=== PATIENT | male | born 1950 | race Hispanic/Latino ===

== ENCOUNTER 2017-09-10 19:19 | Inpatient (IN) | payer MEDICARE ==
[~2017-09-10 19:19] MED LIST: ISOVUE-370 76%-LOCM 1 ML ONE
[2017-09-10 20:02] LABS: Hemoglobin 16.6 g/dL (14.0-18.0); Mean Corpuscular HGB CONC 34.4 g/dL (32.0-36.0); Mean Corpuscular Hemoglobin 31.2 pg (27.0-31.0); Mean Corpuscular Volume 90.6 fL (78.0-98.0); Platelet Count 302 thou/uL (130-400); RBC Distribution Width 11.5 % (11.5-14.5); Red Blood Cell (RBC) Count 5.31 mill/uL (4.70-6.10); White Blood Cell (WBC) Count 14.5 thou/uL (4.8-10.8)
[2017-09-10 20:23] LABS: ALT (SGPT) 9 U/L (8-55); AST (SGOT) 17 U/L (5-34); Alkaline Phosphatase 115 U/L (40-150); Anion Gap 15 mmol/L (10-20); BUN (Urea Nitrogen) 20 mg/dL (8.4-25.7); Band 11 % (5-11); Bilirubin, Total 2.2 mg/dL (0.2-1.2); Calc. Creatinine Clearance 0 mL/min (70-130); Calcium 8.8 mg/dL (7.8-10.44); Carbon Dioxide 21 mmol/L (23-31); Chloride 101 mmol/L (98-107); Estimated GFR-MDRD Greater than 90; Globulin 3.8 g/dL (2.4-3.5); Glucose 138 mg/dL (80-115); Lipase 27 U/L (8-78); Lymphocytes 17 % (21-51); MDiff Complete? YES; Monocytes 12 % (0-10); Neutrophil 60 % (42-75); PLT Morphology Comment Appears Adequate; Potassium 3.9 mmol/L (3.5-5.1); Protein, Total 7.8 g/dL (5.8-8.1); RBC Morphology Normal; Sodium 133 mmol/L (136-145)
--- NOTE | 2017-09-11 00:11 | CT ---
CT ABDOMEN WITH CONTRAST CT PELVIS WITH CONTRAST: DATE: 09/10/17 TIME: 11:36 p.m. HISTORY: 66-year-old male with generalized abdominal pain, diarrhea, and anorexia. Dr. Hines discussed the findings by telephone with Dr. Narayanan of the Emergency Department at 11:48 p.m . on 09/10/17. COMPARISON: None. TECHNIQUE: IV injection of iodinated contrast media: Administered. Oral contrast media: not administered. FINDINGS: At the region of the ileocecal junction, there is extensive extraluminal edema, fat stranding, and ir regularity of the sierra of the cecum, representing mural edema. The edema is such that it is difficul t to determine whether or not a 0.5 cm focus of gas is intraluminal or extraluminal. At the ileocecal junction region, there is an irregularly shaped 2 x 1.5 x 1.5 cm calcification. Just medial to that, there is a much smaller 0.8 x 0.5 x 0.5 cm calcification. To complicate matters, the sigmoid colon takes a wide, right lateral turn, and is inseparable from th is inflammatory complex, and may possibly be tethered to this inflammatory complex. It is difficult t o identify the appendix. The rest of the colon, beginning with the ascending colon, is collapsed. All of the visualized small bowel loops are dilated and fluid filled, some with air/fluid levels. There is diffuse mild increased mural enhancement of the entire colon, consistent with at least a mild colon colitis. No abdominal aortic aneurysm. Bilateral kidneys, pancreas, adrenals, liver, and spleen, are normal. There is no pericholecystic edema, and no gallbladder wall thickening. No pneumobilia. There is a cluster of tiny gallstones at the proximal body of the gallbladder near the neck. No intrahepati c biliary ductal dilation. IMPRESSION: 1. High grade bowel obstruction at the cecum and ileocecal junction, where there are severe infl ammatory changes and severe distortion the cecum, and the presence of a 2 cm calcification (with an a djacent smaller calcific fragment). A flexion point of the sigmoid colon is involved and may be tethe red to this inflammatory process. 2. Exact etiology is uncertain but possibilities include neoplastic tumor with complication of b owel perforation, severe appendicitis with a large appendicolith, and gallstone ileus (although lack of significant changes of the gallbladder and lack of pneumobilia militate against gallstone ileus). 3. Diffuse, at least mild pancolitis, which may unrelated to the above. PAWEL Doan POS: TYLOR
[2017-09-11] MEDS ORDERED: Piperacillin/Tazobactam 3.375 GM VIAL ONE ×2 (00:31→16:27)
[2017-09-11 01:39] VITALS: BMI 29.9
[2017-09-11] MEDS: Sodium Chloride 0.9% 1,000 ML IV SCH ×2 (01:50→08:05)
[2017-09-11] MEDS ORDERED: Piperacillin/Tazobactam 3.375 GM in Sodium Chloride 0.9% 100 ML IVPB SCH (06:00)
[2017-09-11 06:30] LABS: Band 9 % (5-11); Lymphocytes 13 % (21-51); MDiff Complete? YES; Mean Corpuscular HGB CONC 33.9 g/dL (32.0-36.0); Mean Corpuscular Hemoglobin 31.4 pg (27.0-31.0); Mean Corpuscular Volume 92.6 fL (78.0-98.0); Mean Platelet Volume 6.3 fL (7.4-10.4); Monocytes 16 % (0-10); Neutrophil 62 % (42-75); PLT Morphology Comment Appears Adequate; Platelet Count 245 thou/uL (130-400); RBC Distribution Width 11.6 % (11.5-14.5); Red Blood Cell (RBC) Count 4.77 mill/uL (4.70-6.10); White Blood Cell (WBC) Count 11.9 thou/uL (4.8-10.8)
[2017-09-11] MEDS ORDERED: Dextrose 5% in Water 1,000 ML IV PRN (08:57)
[2017-09-11] MEDS ORDERED: Ondansetron HCl/PF 4 MG/2 ML Vial IVP PRN ×4 (08:57→19:24)
[2017-09-11] MEDS ORDERED: Dextrose 50% Abboject 50 ML SYRINGE SLOW IVP PRN (08:57)
[2017-09-11] MEDS ORDERED: Famotidine/PF 20 mg/2ml Vial SLOW IVP SCH (09:00)
--- NOTE | 2017-09-11 10:15 | HP ---
CHIEF COMPLAINT: Abdominal pain with diarrhea and nausea. HISTORY OF PRESENT ILLNESS: The patient is a 66-year-old male. 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 He was returning from a trip and notes that he had been feeling poorly since Thursday (about 5 days). He has had diarrhea and nausea and had very minimal oral intake. He denies vomiting. He notes progressive pain in the right lower abdomen as well. He presented to the emergency room last night for evaluation where he underwent an evaluation per Dr. Narayanan. Labo ratory studies revealed leukocytosis with a white blood cell count of 14.5. Chemistry panel revealed an elevated bilirubin of 2.2, but is otherwise unremarkable. All other liver function tests were no rmal. CT scan of abdomen and pelvis revealed inflammatory changes at the ileocecal junction with a dilated distal small bowel (nondilated proximal small bowel) and a 2 cm calcified mass at the right lower harvey drant as well. It appears that is a calcification that is obstructing the ileocecal valve leading to the small-bowel obstruction. This raised the question of possible gallstone ileus; however, he spec ifically does not have evidence of change at the gallbladder or duodenum that would suggest that this may have occurred previously. It is not obvious what this mass is or why it is present. A CEA leve l is normal at 1.7. The patient notes that he has never had a colonoscopy. PAST MEDICAL HISTORY: Negative. He does not have a primary care physician. PAST SURGICAL HISTORY: None. CURRENT MEDICATIONS: None. ALLERGIES: No known drug allergies. SOCIAL HISTORY: He is and his is present at bedside. He has 1 daughter who is also pre sent. He does not smoke nor does he drink alcohol. REVIEW OF SYSTEMS: Otherwise unremarkable. He notes that he was admitted to the hospital in [facility] for what he feels was a similar episode a couple of years ago, but that was felt to be an episode of constipation. ASSESSMENT: This patient has inflammatory change of the right lower quadrant and significant tendern ess at this location as well as evidence of a small-bowel obstruction. Nasogastric tube was not plac ed and he has had no vomiting. Unfortunately, he is going to require surgery for evaluation and joselito tment of this, but I will not be able to give him a bowel prep because of his obstruction. For the s catina reason, I will not be able to obtain a colonoscopy beforehand. I am concerned that he could have some erosion or early perforation related to this mechanical intraluminal obstruction. I would andree mmend an ileocecectomy or a right hemicolectomy. The operation performed will depend upon intraopera tive findings. Although I would like to perform this laparoscopically, his bowel dilatation may make this impossible. The patient understands this may require an open right hemicolectomy. I discussed this in detail with the patient and his . They understand and agree to proceed with surgery.
[2017-09-11] MEDS ORDERED: Lidocaine 1% PF 5 ML VIAL ONE (10:23)
[2017-09-11] MEDS ORDERED: PROPOFOL 200 MG/20 ML VIAL ONE (10:23)
[2017-09-11] MEDS ORDERED: PHENYLEPHRINE-NS 100 MCG/ML 10 ML SYRINGE ONE (10:23)
[2017-09-11] MEDS ORDERED: Succinylcholine Chloride 20 MG/ML 10 ml SYRINGE FS ONE (10:23)
[2017-09-11] MEDS: D5 1/2 NS w/20 mEq KCL 1,000 ML IV SCH ×3 (12:12→21:59)
[2017-09-11] MEDS ORDERED: Bupivacaine/Epinephrine 0.25% 30 ML VIAL ONE (13:06)
[2017-09-11] MEDS ORDERED: Lidocaine 2% 10 ML INJ ONE (13:06)
[2017-09-11] MEDS ORDERED: Ropivacaine 0.5% HCl/PF (150 MG/30 ML VIAL) ONE (13:15)
[2017-09-11] MEDS ORDERED: Fentanyl 250 MCG/5 ML VIAL ONE (13:43)
[2017-09-11] MEDS ORDERED: Lidocaine 1% w/Epinephrine 1:100K 30 ML VIAL ONE (13:55)
[2017-09-11] MEDS ORDERED: Lidocaine 2% w/Epinephrine 1:200K 20 ML VIAL ONE (14:01)
[2017-09-11] MEDS: Piperacillin/Tazobactam 3.375 GM in Sodium Chloride 0.9% 100 ML IVPB SCH ×3 (14:51→22:01)
[2017-09-11] MEDS ORDERED: HYDROmorphone 0.5 MG/0.5 ML SYRINGE ONE (17:30)
[2017-09-11] MEDS ORDERED: Ketorolac Tromethamine 30 MG/ML VIAL IVP PRN (17:52)
[2017-09-11] MEDS ORDERED: HYDROmorphone 2 MG/ML VIAL SLOW IVP PRN (17:52)
[2017-09-11] MEDS ORDERED: Promethazine HCl 25 MG/ML VIAL SLOW IVP PRN (17:52)
[2017-09-11] MEDS ORDERED: Promethazine HCl 25 MG/ML VIAL IM PRN ×3 (17:52→19:24)
[2017-09-11] MEDS ORDERED: Fentanyl 100 MCG/2 ML VIAL ONE ×2 (17:56→18:27)
[2017-09-11] MEDS ORDERED: Naloxone HCl 0.4 mg/ml Vial IV PRN (18:33)
[2017-09-11] MEDS ORDERED: diphenhydrAMINE 50 MG/ML VIAL IVP PRN (18:33)
[2017-09-11] MEDS ORDERED: fentaNYL Citrate/PF 2,000 MCG in Sodium Chloride 0.9% 60 ML IV PRN (18:33)
[2017-09-11] MEDS ORDERED: diphenhydrAMINE 50 MG/ML VIAL IM PRN (18:33)
[2017-09-11] MEDS ORDERED: Zolpidem Tartrate 5 MG TAB PO PRN (18:33)
[2017-09-11] MEDS ORDERED: diphenhydrAMINE 25 MG CAP PO PRN (18:33)
[2017-09-11] MEDS ORDERED: Communication Order-Pharmacy FS SCH (18:45)
[2017-09-11] MEDS ORDERED: hydrALAZINE 20 MG/ML VIAL SLOW IVP PRN (19:24)
[2017-09-11] MEDS: Famotidine/PF 20 mg/2ml Vial SLOW IVP SCH (21:59)
[2017-09-11] MEDS: Famotidine 20 MG TAB PO SCH (22:00)
[2017-09-12] MEDS: Acetaminophen 1,000 MG in Premix Bag 1 BAG IVPB SCH ×2 (00:08→06:26)
[2017-09-12] MEDS: Ketorolac Tromethamine 30 MG/ML VIAL IVP SCH ×4 (00:10→17:09)
[2017-09-12] MEDS: Piperacillin/Tazobactam 3.375 GM in Sodium Chloride 0.9% 100 ML IVPB SCH ×4 (04:47→21:03)
[2017-09-12 05:41] LABS: Anion Gap 10 mmol/L (10-20); BUN (Urea Nitrogen) 13 mg/dL (8.4-25.7); Calc. Creatinine Clearance 115 mL/min (70-130); Calcium 7.6 mg/dL (7.8-10.44); Carbon Dioxide 24 mmol/L (23-31); Chloride 108 mmol/L (98-107); Estimated GFR-MDRD Greater than 90; Glucose 173 mg/dL (80-115); Sodium 138 mmol/L (136-145)
[2017-09-12 05:57] LABS: Band 39 % (5-11); Hemoglobin 13.9 g/dL (14.0-18.0); Lymphocytes 13 % (21-51); MDiff Complete? YES; Mean Corpuscular HGB CONC 33.1 g/dL (32.0-36.0); Mean Corpuscular Hemoglobin 30.6 pg (27.0-31.0); Mean Corpuscular Volume 92.3 fL (78.0-98.0); Metamyelocyte 1 % (0-0); Monocytes 5 % (0-10); Neutrophil 42 % (42-75); PLT Morphology Comment Appears Adequate; Platelet Count 265 thou/uL (130-400); RBC Distribution Width 11.6 % (11.5-14.5); Red Blood Cell (RBC) Count 4.54 mill/uL (4.70-6.10); White Blood Cell (WBC) Count 15.9 thou/uL (4.8-10.8)
[2017-09-12] MEDS: D5 1/2 NS w/20 mEq KCL 1,000 ML IV SCH ×3 (06:27→21:05)
[2017-09-12] MEDS: Enoxaparin Sodium 40 MG/0.4 ML SYRINGE SC SCH (08:34)
[2017-09-12] MEDS: Famotidine/PF 20 mg/2ml Vial SLOW IVP SCH ×2 (08:35→21:03)
[2017-09-12] MEDS: Famotidine 20 MG TAB PO SCH ×2 (11:31→21:04)
--- NOTE | 2017-09-12 12:20 | PRG ---
DATE OF SERVICE: 09/12/2017 SUBJECTIVE: Mr. Vela is postop day #1 sigmoid and cecectomy by Dr. Kelly. Pain is controlled. No significant nausea. He is ambulatory this morning and hemodynamically stable overnight. PHYSICAL EXAMINATION: VITAL SIGNS: He is afebrile and his vital signs are stable. GENITOURINARY: NG tube output is only 150 overnight, Zamorano 440. ABDOMEN: Soft, minimally distended. His wounds are dressed. LABORATORY DATA: White blood cell count is 15, hemoglobin 13, platelet count is 265. He has 39 band s. Creatinine 0.75. ASSESSMENT: Postop sigmoid colectomy segmental with ileocecectomy with two anastomoses. PLAN: NG tube today. We will make sure he is ambulatory. Hopefully, by tomorrow, can take the NG t ube out, maybe start at least sips of clears.
[2017-09-12] MEDS: Acetaminophen 650 MG Suppository PR SCH ×2 (12:29→19:10)
--- NOTE | 2017-09-12 17:44 | OP ---
DATE OF PROCEDURE: 09/11/2017 PREOPERATIVE DIAGNOSES: Inflammation and pain in the right lower quadrant at the level of the cecum, small-bowel obstruction apparently related to a large calcified mass within the lumen of the distal small bowel. POSTOPERATIVE DIAGNOSES: Inflammatory indurated mass of the cecum involving the distal small bowel a nd segment of sigmoid colon. Erosion of calcified mass through the lateral wall of the cecum. OPERATION PERFORMED: Diagnostic laparoscopy with conversion to a laparotomy. A small bowel decompre ssion, open right hemicolectomy with primary stapled anastomosis, segmental sigmoid colectomy, also w ith primary stapled anastomosis (this was a difficult unconventional operation that took several hour s to complete). SURGEON: Chepe Kelly M.D. ANESTHESIA: General endotracheal. INDICATIONS: The patient is a 66-year-old male. He had presented to the emergency room wit h complaint of diarrhea, not feeling well, right lower quadrant abdominal pain. CT scan within the e mergency room revealed marked inflammation at the level of the cecum and the ileocecal valve. There was a large calcified mass, typical of a calcified gallstone at the level of the ileocecal valve. Th ere appeared to be a sigmoid colon involvement within the lesion as well. He had small-bowel obstruc tion certainly related inflammation and would be a calcified mass and it was not felt that he was a c andidate for a bowel prep. He was taken to the operating room at this time for attempted laparoscopy , but felt it would probably require an open surgery. OPERATIVE PROCEDURE IN DETAIL: Informed consent was obtained. The patient was taken to the operatin g room where general endotracheal anesthesia was obtained with the patient in supine position. Abdom en was prepped with ChloraPrep and draped in the usual sterile fashion. I initially attempted laparo scopy by placing two 5 mm ports, one in the left upper abdomen, one in the left lower abdomen. The p atient did have incarcerated omentum within his umbilical hernia and this could not be reduced with p ressure from inside as well as external pressure. The extent of bowel dilatation made it impossible to reasonably see any portion of the right colon. I therefore decided to convert to an open surgery after attempting laparoscopy. Laparoscopic ports were removed and midline laparotomy incision was created. Dissection was carried through skin and subcutaneous tissue. The hernia contents were easily reduced. I examined the entire contents of the abdomen. As suspected, the sigmoid colon was densely adherent to the area of the right lower quadrant involving the cecum and distal small bowel. I could not gene rate a plane between the structures in order to facilitate mobilization of the sigmoid colon. I evelyne sanchez decided that the sigmoid colon would have to be removed in continuity with the cecum. I alva bruno could not mobilize the cecum at all. I performed a blunt dissection of the lateral cecum and the surrounding retroperitoneum was densely indurated. As I later examined the cecum time, I realized t hat I had dissected through an opening where a perforation of the cecum associated with this calcifie d mass. The distal small bowel was inflamed and had densely adherent to the cecum about 10 cm proximal to the ileocecal valve. I could not discern whether this was inflammatory/infectious or neoplastic. I decided to resect this entire area in continuity. I first decompressed the small bowel in order to gain an area to work within the abdomen. In the dis bossman small bowel, I created an enterotomy and using the poor suction device, I decompressed the entire small bowel removing a little over a liter of bowel contents. The enterotomy was then closed with 0 silk sutures. The small bowel was then divided proximal to the enterotomy with a single fire of the [place] stapler using a blue load. The mesentery was dissected over towards the cecum and right col on. I then turned my attention to the sigmoid colon. I divided the sigmoid colon with fires of the [place] stapler proximal and distal to the area of the adhesion. The mesentery between these areas w as divided using the handheld LigaSure device. I then reflected the sigmoid colon down to the pelvis to be addressed later. Finally, I dissected and divided the proximal transverse colon again using the CATRACHO stapler. The hepatic flexure was mobilized. The mesentery of the proximal transverse and ascending colon was taken down using the LigaSure device. I continued to mobilize the cecum and right colon. There was dense induration and inflammation in the area of the white line of Toldt and this dissection was diff icult. Eventually, I was able to mobilize and divide the mesentery of the right colon as well as the distal small bowel. The specimen was lifted up and passed off as a single specimen. I tagged with sutures the ends of the sigmoid colon, transverse colon and small bowel. It was at this point that I saw the opening into the cecum with the palpable calcified lesion underneath this opening. It appea rs as though perhaps the perforation had occurred and walled off against the lateral retroperitoneum. The abdomen was then irrigated with a couple of liters of warm saline and all irrigant was aspirated. I first created a stapled anastomosis between the small bowel and the proximal transverse colon usi ng a single fire of the 75 mm CATRACHO stapler. The enterotomy was closed with another fire of the staple r. The anastomosis was buttressed with several interrupted sutures of 3-0 silk. Attention was then turned to the sigmoid colon. The two divided areas of the sigmoid colon were anas tomosed in a [id number] fashion. I did mobilize the peritoneum of the distal sigmoid colon, rectum to allow better mobilization and I took down adhesions of the sigmoid colon to the left lateral abdo andi wall. The two segments were anastomosed with a single fire of the CATRACHO stapler and again, the o pening was closed with another fire of the CATRACHO stapler. The anastomosis was buttressed with 3-0 silk suture. The abdominal cavity was again irrigated. A #19 round fluted drain was brought out in the right uppe r quadrant and passed down through the area of the prior infection in the right lower quadrant extend ing down to the pelvis. The drain was secured externally with 3-0 nylon suture. I also excised the segment of the right retroperitoneum that was inflamed and indurated to ensure that this was inflamma tory response rather than neoplastic tissue. Two sheets of Seprafilm were placed within the abdominal cavity. The closing set was then used. Gowns and gloves were changed and the area was cleansed with saline-m oistened gauze. There in a sterile fashion. The fascia was closed with a running suture of lo op #1 PDS. The subcutaneous tissue was extensively irrigated using about 2 liters of saline and all irrigant was aspirated. The skin edges were approximated with skin mic and Telfa gauze elio wer e placed between these loosely placed mic. Dry gauze dressing was placed externally. There were no complications. The elio were placed because the bowel had not been prepped with eithe r mechanical and/or antibiotic prep. There was no leakage of stool at any time during the operation, but there is still certainly the risk of wound infection especially given the perforation of the cec um. The patient tolerated the procedure well and was taken to recovery room in stable condition.
[2017-09-12] MEDS ORDERED: HYDROcodone/Acetaminophen 7.5/325 mg Tablet PO PRN ×2 (18:35)
[2017-09-13] MEDS: Ketorolac Tromethamine 30 MG/ML VIAL IVP SCH ×4 (00:02→18:10)
[2017-09-13 04:19] LABS: #Monocytes 1.2 thou/uL (0.11-0.59); #Neutrophils 10.5 thou/uL (1.40-6.50); %Basophils 0.1 % (0.0-1.0); %Eosinophils 0.3 % (0.0-10.0); %Lymphocytes 14.2 % (21.0-51.0); %Neutrophils 76.3 % (42.0-75.0); Hemoglobin 11.6 g/dL (14.0-18.0); Mean Corpuscular HGB CONC 33.7 g/dL (32.0-36.0); Mean Corpuscular Hemoglobin 31.3 pg (27.0-31.0); Mean Corpuscular Volume 92.9 fL (78.0-98.0); Mean Platelet Volume 6.1 fL (7.4-10.4); Platelet Count 213 thou/uL (130-400); RBC Distribution Width 11.3 % (11.5-14.5); Red Blood Cell (RBC) Count 3.71 mill/uL (4.70-6.10); White Blood Cell (WBC) Count 13.7 thou/uL (4.8-10.8)
[2017-09-13 04:40] LABS: Anion Gap 9 mmol/L (10-20); BUN (Urea Nitrogen) 12 mg/dL (8.4-25.7); Calc. Creatinine Clearance 121 mL/min (70-130); Calcium 7.7 mg/dL (7.8-10.44); Carbon Dioxide 27 mmol/L (23-31); Chloride 106 mmol/L (98-107); Estimated GFR-MDRD Greater than 90; Glucose 135 mg/dL (80-115); Potassium 3.2 mmol/L (3.5-5.1); Sodium 139 mmol/L (136-145)
[2017-09-13] MEDS: Piperacillin/Tazobactam 3.375 GM in Sodium Chloride 0.9% 100 ML IVPB SCH ×4 (05:28→21:15)
--- NOTE | 2017-09-13 09:36 | PDOC.GSPN ---
Surgery Progress Note: Subj - Subjective Patient reports: no new complaints Surgery Progress Note: Obj - Vital signs Vital signs: Vital Signs - Most Recent Temp Pulse Resp BP Pulse Ox 98.3 F 80 16 118/71 91 L 09/13/17 08:13 09/13/17 08:13 09/13/17 08:13 09/13/17 08:13 09/13/17 08:13 - Physical Exam General: no distress Cardiovascular: regular rate and rhythm Respiratory: clear to auscultation Abdomen: soft, nondistended, appropriately tender Wound: dressing clean,dry,intact Surgery Progress Note: Results - Labs Result Diagrams: 09/13/17 03:38 09/13/17 03:38 Lab results: Laboratory Results - last 24 hr 09/13/17 09/13/17 03:38 03:38 WBC 13.7 H RBC 3.71 L Hgb 11.6 L Hct 34.5 L MCV 92.9 MCH 31.3 H MCHC 33.7 RDW 11.3 L Plt Count 213 MPV 6.1 L Neutrophils % 76.3 H Lymphocytes % 14.2 L Monocytes % 9.0 Eosinophils % 0.3 Basophils % 0.1 Neutrophils # 10.5 H Lymphocytes # 2.0 Monocytes # 1.2 H Eosinophils # 0.0 Basophils # 0.0 Sodium 139 Potassium 3.2 L Chloride 106 Carbon Dioxide 27 Anion Gap 9 L BUN 12 Creatinine 0.71 Estimated GFR (MDRD) Greater than 90 Glucose 135 H Calcium 7.7 L Surgery Progress Note: A/P - Problem (1) Colitis Current Visit: Yes Code(s): K52.9 - NONINFECTIVE GASTROENTERITIS AND COLITIS, UNSPECIFIED Status: Acute - Plan Plan: POD 2 -DC NG -DC lucia -try clears. 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
[2017-09-13] MEDS: Famotidine/PF 20 mg/2ml Vial SLOW IVP SCH ×2 (10:36→21:13)
[2017-09-13] MEDS: Enoxaparin Sodium 40 MG/0.4 ML SYRINGE SC SCH (10:46)
[2017-09-13] MEDS: Famotidine 20 MG TAB PO SCH ×2 (12:57→21:52)
[2017-09-13] MEDS: D5 1/2 NS w/20 mEq KCL 1,000 ML IV SCH ×3 (13:44→15:16)
[2017-09-13] MEDS: Fentanyl 100 MCG/2 ML VIAL SLOW IVP PRN ×2 (15:24→21:30)
[2017-09-14] MEDS: Ketorolac Tromethamine 30 MG/ML VIAL IVP SCH ×5 (00:21→23:55)
[2017-09-14] MEDS: Fentanyl 100 MCG/2 ML VIAL SLOW IVP PRN ×2 (05:16→08:41)
[2017-09-14] MEDS: Piperacillin/Tazobactam 3.375 GM in Sodium Chloride 0.9% 100 ML IVPB SCH ×4 (05:17→21:49)
[2017-09-14] MEDS: Famotidine 20 MG TAB PO SCH ×2 (08:41→21:48)
[2017-09-14] MEDS: D5 1/2 NS w/20 mEq KCL 1,000 ML IV SCH ×2 (08:47→18:24)
[2017-09-14] MEDS: Famotidine/PF 20 mg/2ml Vial SLOW IVP SCH (08:47)
--- NOTE | 2017-09-14 09:18 | PRG ---
DATE OF SERVICE: 09/14/2017 SUBJECTIVE: Mr. Vela is postoperative day #3 from an open right hemicolectomy and segmental sigmo id colectomy for an obstructing cecal mass/inflammatory process. Pathology is still pending. The veronica goddard's nasogastric tube has been removed and he is on clear liquids. He tells me he is not belching much and has not vomited. He has had no flatus. He is urinating and voiding. PHYSICAL EXAMINATION: VITAL SIGNS: On examination today, he is afebrile, pulse 73, blood pressure 137/83. LUNGS: Clear to auscultation. ABDOMEN: Diffusely tender. Dressing is intact over his midline incision. His bowel sounds are norm al to hyperactive. LABORATORY STUDIES: There were no labs obtained today. His basic metabolic panel revealed mild hypo kalemia with a potassium of 3.2. He is receiving potassium in his IV fluids. His hemoglobin is rela tively stable at 11.6 with a white blood cell count that is decreasing at 13.7. Again, these labs we re from yesterday. In summary, he appears to be progressing appropriately. His ileus is resolving. For now, I would co ntinue clear liquids and ambulation. If he develops flatus or bowel movements, then I would advance him to a full liquid diet. We will await pathology to see if this was an inflammatory or neoplastic process.
[2017-09-14] MEDS: Enoxaparin Sodium 40 MG/0.4 ML SYRINGE SC SCH (09:56)
[2017-09-15] MEDS: Piperacillin/Tazobactam 3.375 GM in Sodium Chloride 0.9% 100 ML IVPB SCH ×4 (04:58→20:54)
[2017-09-15 06:10] LABS: Anion Gap 11 mmol/L (10-20); BUN (Urea Nitrogen) 10 mg/dL (8.4-25.7); Calc. Creatinine Clearance 125 mL/min (70-130); Calcium 8.4 mg/dL (7.8-10.44); Carbon Dioxide 26 mmol/L (23-31); Chloride 104 mmol/L (98-107); Estimated GFR-MDRD Greater than 90; Glucose 119 mg/dL (80-115); Potassium 3.5 mmol/L (3.5-5.1); Sodium 137 mmol/L (136-145)
[2017-09-15 06:13] LABS: #Basophils 0.1 thou/uL (0.0-0.2); #Eosinphils 0.4 thou/uL (0.0-0.7); #Lymphocytes 2.3 thou/uL (1.20-3.40); #Monocytes 1.9 thou/uL (0.11-0.59); #Neutrophils 9.5 thou/uL (1.40-6.50); %Basophils 0.4 % (0.0-1.0); %Eosinophils 2.7 % (0.0-10.0); %Lymphocytes 16.3 % (21.0-51.0); %Monocytes 13.2 % (0.0-10.0); %Neutrophils 67.4 % (42.0-75.0); Hemoglobin 11.9 g/dL (14.0-18.0); Mean Corpuscular HGB CONC 32.6 g/dL (32.0-36.0); Mean Corpuscular Hemoglobin 30.1 pg (27.0-31.0); Mean Corpuscular Volume 92.4 fL (78.0-98.0); Mean Platelet Volume 6.4 fL (7.4-10.4); Platelet Count 264 thou/uL (130-400); RBC Distribution Width 11.3 % (11.5-14.5); Red Blood Cell (RBC) Count 3.96 mill/uL (4.70-6.10); White Blood Cell (WBC) Count 14.1 thou/uL (4.8-10.8)
[2017-09-15] MEDS: Famotidine 20 MG TAB PO SCH ×2 (09:22→20:54)
[2017-09-15] MEDS: Enoxaparin Sodium 40 MG/0.4 ML SYRINGE SC SCH (09:23)
[2017-09-15] MEDS: D5 1/2 NS w/20 mEq KCL 1,000 ML IV SCH (10:17)
[2017-09-15] MEDS: Fentanyl 100 MCG/2 ML VIAL SLOW IVP PRN (16:06)
--- NOTE | 2017-09-15 18:51 | PDOC.GSPN ---
Surgery Progress Note: Obj - Vital signs Vital signs: Vital Signs - Most Recent Temp Pulse Resp BP Pulse Ox 98.9 F 71 16 136/81 95 09/15/17 16:10 09/15/17 16:10 09/15/17 16:10 09/15/17 16:10 09/15/17 16:10 Surgery Progress Note: Results - Labs Result Diagrams: 09/15/17 04:44 09/15/17 04:44 Lab results: Laboratory Results - last 24 hr 09/15/17 09/15/17 04:44 04:44 WBC 14.1 H RBC 3.96 L Hgb 11.9 L Hct 36.5 L MCV 92.4 MCH 30.1 MCHC 32.6 RDW 11.3 L Plt Count 264 MPV 6.4 L Neutrophils % 67.4 Lymphocytes % 16.3 L Monocytes % 13.2 H Eosinophils % 2.7 Basophils % 0.4 Neutrophils # 9.5 H Lymphocytes # 2.3 Monocytes # 1.9 H Eosinophils # 0.4 Basophils # 0.1 Sodium 137 Potassium 3.5 Chloride 104 Carbon Dioxide 26 Anion Gap 11 BUN 10 Creatinine 0.69 Estimated GFR (MDRD) Greater than 90 Glucose 119 H Calcium 8.4
[2017-09-16] MEDS: Fentanyl 100 MCG/2 ML VIAL SLOW IVP PRN (00:58)
[2017-09-16] MEDS: D5 1/2 NS w/20 mEq KCL 1,000 ML IV SCH ×2 (01:02→11:22)
[2017-09-16] MEDS: Piperacillin/Tazobactam 3.375 GM in Sodium Chloride 0.9% 100 ML IVPB SCH ×2 (03:59→10:02)
[2017-09-16] MEDS: Famotidine 20 MG TAB PO SCH ×2 (08:55→22:28)
[2017-09-16] MEDS: Enoxaparin Sodium 40 MG/0.4 ML SYRINGE SC SCH (08:55)
[2017-09-16] MEDS ORDERED: traMADol HCl 50 MG TAB PO PRN (11:05)
[2017-09-16] MEDS: traMADol HCl 50 MG TAB PO PRN ×2 (11:22→22:34)
[2017-09-16] MEDS ORDERED: Ibuprofen 600 MG TAB PO PRN (14:50)
[2017-09-16] MEDS: Vancomycin HCl 25 MG/ML Oral PO SCH ×2 (17:22→22:28)
--- NOTE | 2017-09-16 23:07 | HP ---
HISTORY OF PRESENT ILLNESS: Mr. Vela is doing well today. His Clostridium difficile stools were positive for antigen and antibody. He is still on p.o. His Zosyn was discontinued. He is nisreen erating his diet, although does not have much appetite. His stools are less by 2:00 today, he has only had 2-3 loose stools. PHYSICAL EXAMINATION: LUNGS: Clear to auscultation. CARDIAC: Regular rate and rhythm without murmur or gallop. ABDOMEN: Soft, nontender. EXTREMITIES: Unremarkable. LABORATORY DATA: White count 14.1, hemoglobin 11.9 yesterday. Basic metabolic profile normal yester day, no labs today. ASSESSMENT AND PLAN: 1. Clostridium difficile colitis, start Vancocin p.o., discontinue Zosyn. 2. GI function is resuming. Discontinue IV fluids as his diarrhea seems to have decreased. Increas e his diet as tolerated oral analgesics. Discontinue narcotic, analgesics. A LUBA ballard for n ow. Anticipate removal tomorrow, possibly prior to discharge tomorrow or the next day pending his C. diff status.
[2017-09-17 08:27] LABS: #Basophils 0.1 thou/uL (0.0-0.2); #Eosinphils 0.5 thou/uL (0.0-0.7); #Lymphocytes 2.6 thou/uL (1.20-3.40); #Monocytes 1.9 thou/uL (0.11-0.59); #Neutrophils 8.5 thou/uL (1.40-6.50); %Basophils 0.6 % (0.0-1.0); %Eosinophils 3.7 % (0.0-10.0); %Monocytes 14.2 % (0.0-10.0); %Neutrophils 62.5 % (42.0-75.0); Hemoglobin 12.8 g/dL (14.0-18.0); Mean Corpuscular HGB CONC 33.5 g/dL (32.0-36.0); Mean Corpuscular Hemoglobin 30.6 pg (27.0-31.0); Mean Corpuscular Volume 91.5 fL (78.0-98.0); Mean Platelet Volume 5.8 fL (7.4-10.4); Platelet Count 311 thou/uL (130-400); RBC Distribution Width 11.5 % (11.5-14.5); Red Blood Cell (RBC) Count 4.19 mill/uL (4.70-6.10); White Blood Cell (WBC) Count 13.6 thou/uL (4.8-10.8)
[2017-09-17 08:44] LABS: Anion Gap 12 mmol/L (10-20); BUN (Urea Nitrogen) 8 mg/dL (8.4-25.7); Calc. Creatinine Clearance 135 mL/min (70-130); Calcium 8.4 mg/dL (7.8-10.44); Carbon Dioxide 25 mmol/L (23-31); Chloride 102 mmol/L (98-107); Estimated GFR-MDRD Greater than 90; Glucose 96 mg/dL (80-115); Potassium 3.7 mmol/L (3.5-5.1); Sodium 135 mmol/L (136-145)
[2017-09-17] MEDS: Vancomycin HCl 25 MG/ML Oral PO SCH ×4 (09:26→20:50)
[2017-09-17] MEDS: Famotidine 20 MG TAB PO SCH ×2 (09:27→20:48)
[2017-09-17] MEDS: Enoxaparin Sodium 40 MG/0.4 ML SYRINGE SC SCH (11:21)
[2017-09-17] MEDS: traMADol HCl 50 MG TAB PO PRN (14:37)
--- NOTE | 2017-09-17 17:48 | PDOC.GSPN ---
Surgery Progress Note: Subj - Subjective Narrative: Feels better. Abdominal pain is less and diarrhea is decreasing in quantity although still watery. Afebrile. JANINA drainage is serous. Lj were removed. There is some erythema superior to the umbilicus and the drainage from that area is somewhat murky and malodorous. The wound was irrigated and packed. Assessment/plan: Doing well from colon resection. C. difficile colitis responding to oral vancomycin. Possible wound infection; the fascia is intact by probing. For wound care training and observation since [place] I'm hesitant to start antibiotics due to his C. difficile colitis so we will try to manage this with irrigation and packing. The family's being instructed in wound care. I have elected to keep him here for another day Surgery Progress Note: Obj - Vital signs Vital signs: Vital Signs - Most Recent Temp Pulse Resp BP Pulse Ox 98.2 F 84 18 147/83 H 94 L 09/17/17 15:49 09/17/17 15:49 09/17/17 15:49 09/17/17 15:49 09/17/17 15:49 Surgery Progress Note: Results - Labs Result Diagrams: 09/17/17 08:19 09/17/17 08:19 Lab results: Laboratory Results - last 24 hr 09/17/17 09/17/17 08:19 08:19 WBC 13.6 H RBC 4.19 L Hgb 12.8 L Hct 38.3 L MCV 91.5 MCH 30.6 MCHC 33.5 RDW 11.5 Plt Count 311 MPV 5.8 L Neutrophils % 62.5 Lymphocytes % 19.0 L Monocytes % 14.2 H Eosinophils % 3.7 Basophils % 0.6 Neutrophils # 8.5 H Lymphocytes # 2.6 Monocytes # 1.9 H Eosinophils # 0.5 Basophils # 0.1 Sodium 135 L Potassium 3.7 Chloride 102 Carbon Dioxide 25 Anion Gap 12 BUN 8 L Creatinine 0.64 Estimated GFR (MDRD) Greater than 90 Glucose 96 Calcium 8.4
[2017-09-18] MEDS: traMADol HCl 50 MG TAB PO PRN ×2 (00:52→09:24)
[2017-09-18] MEDS: Famotidine 20 MG TAB PO SCH ×2 (09:22→21:03)
[2017-09-18] MEDS: Enoxaparin Sodium 40 MG/0.4 ML SYRINGE SC SCH (09:22)
[2017-09-18] MEDS: Vancomycin HCl 25 MG/ML Oral PO SCH ×4 (09:26→21:04)
[2017-09-18] MEDS: metroNIDAZOLE 500 MG in Premix Bag 1 BAG IVPB SCH (16:35)
[2017-09-19] MEDS: metroNIDAZOLE 500 MG in Premix Bag 1 BAG IVPB SCH ×4 (00:22→23:21)
[2017-09-19 05:38] LABS: #Basophils 0.1 thou/uL (0.0-0.2); #Eosinphils 0.6 thou/uL (0.0-0.7); #Lymphocytes 2.6 thou/uL (1.20-3.40); #Monocytes 1.7 thou/uL (0.11-0.59); %Basophils 0.4 % (0.0-1.0); %Eosinophils 4.2 % (0.0-10.0); %Lymphocytes 17.4 % (21.0-51.0); %Monocytes 11.5 % (0.0-10.0); %Neutrophils 66.5 % (42.0-75.0); Hemoglobin 12.8 g/dL (14.0-18.0); Mean Corpuscular HGB CONC 33.3 g/dL (32.0-36.0); Mean Corpuscular Hemoglobin 30.2 pg (27.0-31.0); Mean Corpuscular Volume 90.6 fL (78.0-98.0); Mean Platelet Volume 5.6 fL (7.4-10.4); Platelet Count 385 thou/uL (130-400); RBC Distribution Width 11.4 % (11.5-14.5); Red Blood Cell (RBC) Count 4.24 mill/uL (4.70-6.10)
[2017-09-19 06:03] LABS: Anion Gap 12 mmol/L (10-20); BUN (Urea Nitrogen) 9 mg/dL (8.4-25.7); Calc. Creatinine Clearance 123 mL/min (70-130); Calcium 8.9 mg/dL (7.8-10.44); Carbon Dioxide 29 mmol/L (23-31); Chloride 98 mmol/L (98-107); Estimated GFR-MDRD Greater than 90; Glucose 107 mg/dL (80-115); Sodium 135 mmol/L (136-145)
[2017-09-19] MEDS: traMADol HCl 50 MG TAB PO PRN ×2 (10:21→17:20)
[2017-09-19] MEDS: Vancomycin HCl 25 MG/ML Oral PO SCH ×4 (10:21→21:54)
[2017-09-19] MEDS: Enoxaparin Sodium 40 MG/0.4 ML SYRINGE SC SCH (10:21)
[2017-09-19] MEDS: Famotidine 20 MG TAB PO SCH ×2 (10:21→21:54)
--- NOTE | 2017-09-19 12:02 | EKG ---
Test Reason : Blood Pressure : / mmHG Vent. Rate : 095 BPM Atrial Rate : 095 BPM P-R Int : 148 ms QRS Dur : 074 ms QT Int : 344 ms P-R-T Axes : 038 013 025 degrees QTc Int : 432 ms Normal sinus rhythm Normal ECG Confirmed by LALO CASTILLO, GO Owens ([id number]), assignment desk editor RIMMA DUARTE ([id number]) on 09/19/2017 12:02:36 PM Referred By: Confirmed By:GO MAY MD
--- NOTE | 2017-09-19 14:32 | PRG ---
DATE OF SERVICE: 09/19/2017 SUBJECTIVE: Mr. Vela is doing fairly well today. He is tolerating his diet. He is having bowel movements. He has not had any fever. OBJECTIVE: VITAL SIGNS: 98.9 degrees, 88, 14, 128/83, saturation 96%. LUNGS: Clear to auscultation. CARDIAC: Regular rate and rhythm without murmur or gallop. ABDOMEN: Soft, nondistended, but is slightly more tender than one would expect. Open wound, upper m idline incision reveals that there are still foul smelling drainage, although not volume less. Inspe ction of the fascia reveals that it has opened. The underlying viscera is present. I cannot tell wh ether this fatty tissue or viscera. EXTREMITIES: Unremarkable. LABORATORY DATA: White count 15 from 13 yesterday, hemoglobin 12. Basic metabolic profile is normal . ASSESSMENT AND PLAN: Wound infection, wound dehiscence, surgical intervention may not be necessary. The drainage from the wound is foul smelling, although with compression of the abdomen, I cannot ramila reciate any air or fluid. We will obtain a CT scan of abdomen and pelvis with p.o. and IV contrast t tommy. We will hold any discharge plans for now. He may eventually need exploration and closure of t his wound dehiscence or treat with a wound VAC. We will check his CAT scan today and make further de cisions later.
--- NOTE | 2017-09-19 16:16 | CT ---
CT ABDOMEN AND PELVIS WITH CONTRAST: 09/19/17 COMPARISON: 09/10/17. HISTORY: Drainage from surgical site after having colectomy. TECHNIQUE: Multiple contiguous axial images were obtained in a CT of the abdomen and pelvis with contrast. PO co ntrast was administered. Coronal reformats were performed. FINDINGS: The liver, gallbladder, kidneys, adrenal glands, spleen, and pancreas are unremarkable. Postsurgical changes are seen from a prior colectomy withy an anastomotic staple line in the region of the sigmoid colon. Contrast is seen throughout the small bowel loops which are normal in caliber. There is a sma ll fluid collection in the root of the small bowel mesentery measuring 1.9 x 3.7 x 1.8 cm in size. Th is is surrounded by small bowel. No obvious extension of this fluid collection to the skin surface or anterior abdominal wall is seen. There is a small thin fluid collection just beneath the abdominal f ascia measuring approximately 8 mm in thickness. The patient's surgical wound appears at least partia lly opened. No abdominal or pelvic lymphadenopathy are seen. Atherosclerotic calcifications are seen in the aorta . There is atelectasis in the lung bases and trace bilateral pleural effusions. Degenerative changes are seen in the spine. IMPRESSION: 1. Patient has a small fluid collection in the root of the small bowel mesentery. This is surrou nded by small bowel loops and is not amenable to percutaneous drainage. 2. There is a small amount of fluid along the anterior abdominal wall just beneath the patient's abdominal incision and abdominal fascia. This is less than 1 cm in thickness. POS: TYLOR
[2017-09-20 05:45] LABS: #Basophils 0.1 thou/uL (0.0-0.2); #Eosinphils 0.5 thou/uL (0.0-0.7); #Lymphocytes 2.4 thou/uL (1.20-3.40); #Monocytes 1.3 thou/uL (0.11-0.59); #Neutrophils 10.8 thou/uL (1.40-6.50); %Basophils 0.6 % (0.0-1.0); %Lymphocytes 15.8 % (21.0-51.0); %Monocytes 8.5 % (0.0-10.0); %Neutrophils 72.1 % (42.0-75.0); Hemoglobin 12.7 g/dL (14.0-18.0); Mean Corpuscular HGB CONC 33.6 g/dL (32.0-36.0); Mean Corpuscular Hemoglobin 30.4 pg (27.0-31.0); Mean Corpuscular Volume 90.5 fL (78.0-98.0); Mean Platelet Volume 5.6 fL (7.4-10.4); Platelet Count 422 thou/uL (130-400); RBC Distribution Width 11.5 % (11.5-14.5); Red Blood Cell (RBC) Count 4.16 mill/uL (4.70-6.10)
[2017-09-20 06:08] LABS: Anion Gap 10 mmol/L (10-20); BUN (Urea Nitrogen) 9 mg/dL (8.4-25.7); Calc. Creatinine Clearance 129 mL/min (70-130); Calcium 8.6 mg/dL (7.8-10.44); Carbon Dioxide 28 mmol/L (23-31); Chloride 99 mmol/L (98-107); Estimated GFR-MDRD Greater than 90; Glucose 109 mg/dL (80-115); Phosphorus 3.1 mg/dL (2.3-4.7); Potassium 3.9 mmol/L (3.5-5.1); Sodium 133 mmol/L (136-145)
[2017-09-20] MEDS: Vancomycin HCl 25 MG/ML Oral PO SCH ×4 (08:38→20:35)
[2017-09-20] MEDS: Famotidine 20 MG TAB PO SCH ×2 (08:38→20:30)
[2017-09-20] MEDS: metroNIDAZOLE 500 MG in Premix Bag 1 BAG IVPB SCH ×2 (08:38→16:45)
[2017-09-20] MEDS: Enoxaparin Sodium 40 MG/0.4 ML SYRINGE SC SCH (08:39)
[2017-09-20] MEDS: traMADol HCl 50 MG TAB PO PRN ×2 (09:54→20:30)
--- NOTE | 2017-09-20 16:16 | PRG ---
DATE OF SERVICE: 09/20/2017 SUBJECTIVE: Abhishek Vela is doing well today. Wound VAC has been placed on his wound. I have discussed with wound care and the abdominal wound looks the same as did yesterday. There was a fasci al defect, but no evisceration. Vaseline gauze was placed in the depths of the wound and wound VAC a pplied. Family is pleased with the wound VAC application and care. OBJECTIVE: VITAL SIGNS: 98.1 degrees, 77, 132/66. LUNGS: Clear to auscultation. CARDIAC: Regular rate and rhythm without murmur or gallop. ABDOMEN: Soft, nontender. LABORATORIES: White count 15, hemoglobin 12. Basic metabolic profile stable. ASSESSMENT AND PLAN: Doing well. Wound infection status post opening small focus of wound fascial d ehiscence. Continue wound VAC care. Try to avoid other operations at this point. The patient will be ready for discharge home in the next day or two. He has a temporary wound VAC disposable and coul d be discharged with that and wound care can be arranged in [place] with home health. I have informe d complex case manager to make those arrangements tomorrow. The patient probably be discharged home tomorrow with his wound VAC and assume wound VAC care in [place].
[2017-09-21] MEDS: metroNIDAZOLE 500 MG in Premix Bag 1 BAG IVPB SCH ×3 (00:19→16:57)
[2017-09-21] MEDS: Enoxaparin Sodium 40 MG/0.4 ML SYRINGE SC SCH (09:45)
[2017-09-21] MEDS: Vancomycin HCl 25 MG/ML Oral PO SCH ×4 (09:45→21:04)
[2017-09-21] MEDS: Famotidine 20 MG TAB PO SCH ×2 (09:46→21:04)
[2017-09-21] MEDS: traMADol HCl 50 MG TAB PO PRN ×2 (09:46→21:14)
[2017-09-21] MEDS: Acetaminophen 500 MG TAB PO PRN (09:46)
--- NOTE | 2017-09-21 10:13 | PRG ---
DATE OF SERVICE: 09/21/2017 Mr. Vela is postoperative day #10 from laparotomy, right hemicolectomy, segmental sigmoid colectom y from an obstructing/ulcerative/perforated cecal calcification. 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 Pathology revealed no evidence of malignancy. The patient still has no complaints. He is tolerating his regular diet. He estimates that he had 2 soft bowel movements yesterday. He is voiding well. His only complaints are those associated with h is wound. Yesterday, Dr. Estrada had a temporary disposable wound VAC placed on the wound with anticipation of d ischarge today or tomorrow. Cultures from the wound revealed multiple gram negative rods and Enteroc occus. Anaerobic culture is preliminary A CT scan that was obtained on Thursday (2 days ago) revealed small fluid collections intra-abdominal , one of which was at the root of the small bowel mesentery, another small area of fluid just under t he abdominal wall. The patient did have oral contrast with the CT scan and it passed through the ile ocolonic anastomosis with no evidence of leak. There is no definite evidence of a leak at the sigmoi d anastomosis either. The patient did have Clostridium difficile diarrhea documented on 09/15/2017. He has been on oral va ncomycin since then and notes fairly quick resolution of his watery diarrhea. He has been on intrave nous Flagyl for his subsequent wound infection. Additional antibiotics were not started secondary to his Clostridium difficile diarrhea. PHYSICAL EXAMINATION: VITAL SIGNS: He is afebrile. His temperature is 98.9. Pulse is 89 with a blood pressure of 119/77. LUNGS: Clear to auscultation. ABDOMEN: The abdomen has normoactive bowel sounds. Laparoscopic port sites on the left side of his abdomen are healing nicely. The majority of the staple line is intact. I opened a segment about 3-4 inches long in his upper abdomen. A disposable wound VAC was intact in that location which I remove d. There is still some foul smell within the wound. Dr. Estrada had felt that there was dehiscence o f the fascia and I can definitely see this. There is no obvious material draining into the wound, no r is there purulence. There may have been some fluid draining from the prior Telfa wick sites in his lower abdomen. This looks like it was mostly mild bloody oozing. I replaced a dry gauze dressing a t this time. LABORATORY DATA: None. ASSESSMENT AND PLAN: In general he appears to be doing well following his colon resection. He unfor tunately has a wound infection that is not an anticipated since he had a colon perforation and unprep ped bowel. Continue wound care for his upper abdominal wound. I want to make sure this is appropria tely stable before he is discharged and goes back to back to [place]. I will reexamine his wounds a nd if everything appears stable tomorrow, then I would probably hope to arrange discharge with follow up wound care in the [place] at that time.
[2017-09-22] MEDS: metroNIDAZOLE 500 MG in Premix Bag 1 BAG IVPB SCH ×2 (00:25→09:34)
[2017-09-22 05:25] LABS: #Basophils 0.1 thou/uL (0.0-0.2); #Eosinphils 0.4 thou/uL (0.0-0.7); #Lymphocytes 3.7 thou/uL (1.20-3.40); #Monocytes 1.5 thou/uL (0.11-0.59); #Neutrophils 11.4 thou/uL (1.40-6.50); %Basophils 0.4 % (0.0-1.0); %Eosinophils 2.5 % (0.0-10.0); %Lymphocytes 21.3 % (21.0-51.0); %Monocytes 8.9 % (0.0-10.0); %Neutrophils 66.8 % (42.0-75.0); Hemoglobin 12.5 g/dL (14.0-18.0); Mean Corpuscular HGB CONC 33.5 g/dL (32.0-36.0); Mean Corpuscular Volume 92.6 fL (78.0-98.0); Mean Platelet Volume 5.8 fL (7.4-10.4); Platelet Count 485 thou/uL (130-400); RBC Distribution Width 11.7 % (11.5-14.5); Red Blood Cell (RBC) Count 4.02 mill/uL (4.70-6.10); White Blood Cell (WBC) Count 17.1 thou/uL (4.8-10.8)
[2017-09-22 05:51] LABS: ALT (SGPT) 16 U/L (8-55); AST (SGOT) 23 U/L (5-34); Albumin 3.1 g/dL (3.4-4.8); Alkaline Phosphatase 91 U/L (40-150); Anion Gap 11 mmol/L (10-20); BUN (Urea Nitrogen) 11 mg/dL (8.4-25.7); Bilirubin, Total 0.4 mg/dL (0.2-1.2); Calc. Creatinine Clearance 121 mL/min (70-130); Calcium 8.7 mg/dL (7.8-10.44); Carbon Dioxide 27 mmol/L (23-31); Chloride 102 mmol/L (98-107); Estimated GFR-MDRD Greater than 90; Globulin 3.2 g/dL (2.4-3.5); Glucose 104 mg/dL (80-115); Potassium 4.1 mmol/L (3.5-5.1); Protein, Total 6.3 g/dL (5.8-8.1); Sodium 136 mmol/L (136-145)
[2017-09-22] MEDS: Vancomycin HCl 25 MG/ML Oral PO SCH ×2 (09:33→13:42)
[2017-09-22] MEDS: Famotidine 20 MG TAB PO SCH (09:34)
--- NOTE | 2017-09-22 09:49 | DIS ---
DATE OF ADMISSION: 09/10/2017 DATE OF DISCHARGE: 09/22/2017 ADMISSION DIAGNOSES: Small bowel obstruction with obstructing calcified mass in right lower quadrant with severe pain, leukocytosis, and inflammation. 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 OPERATIONS AND PROCEDURES PERFORMED: On 09/11/2017, he underwent a laparotomy with an open right hem icolectomy with primary stapled anastomosis and a short segmental sigmoid colectomy also with primary stapled anastomosis. Additional diagnoses at the time of discharge include postoperative Clostridiu m difficile diarrhea (more or less resolved with oral vancomycin treatment) and wound infection, poly microbial and not resolved yet. ADMISSION HISTORY: Patient is a 66-year-old male who is from [place]. He was [facility] when he became ill. He gave a history of diarrhea, but he developed abdominal pain when he presented to the emergency room. He had a leukocytosis of 14.5 and severe right lower quadrant tend erness to palpation. CT scan revealed significant small bowel dilatation distally leading up to an i nflammatory process in the cecum associated with a calcified mass. There was initial consideration g heavenly to this being a gallstone ileus, however, his gallbladder and duodenum were unremarkable. He wa s taken to the operating room initially for attempted laparoscopy, but converted quickly to a laparot cirilo. HOSPITAL COURSE: His surgery was difficult. The small bowel had to be decompressed due to its signi ficant distention. He had a severely inflamed cecum and surrounding tissue. There was a loop of sma ll bowel adherent to the cecum as well as a loop of sigmoid colon. All the tissue was very indurated and inflamed. It was difficult to discern whether this was inflammatory or neoplastic. He had an e ventual right hemicolectomy. There was little to no spillage intraoperative, however, as the colon w as mobilized, it was recognized that there was a perforation laterally. The sigmoid colon was densel y adherent to the cecum and for this reason I performed a short segmental resection of the sigmoid co jerardo also with a primary stapled anastomosis. HOSPITAL COURSE: The patient initially had an unremarkable postoperative course and a nasogastric tu be was placed initially which was removed and he was started on a diet. He developed from there Clos tridium difficile diarrhea, which was treated with oral vancomycin. He had almost immediate resoluti on of his significant diarrhea. His other IV antibiotics were discontinued; however. He was recogni zed to have some drainage from his abdominal wound and this was opened and packed. This has been ope n for 3 or 4 days now and unfortunately continues to have a foul smell. I was initially concerned re garding the possibility of a fistula; however, there is no evidence of any enteric or bilious content s within the wound. He has remained afebrile during his entire hospitalization. His maximum temperature is 99.2 last nig ht. His pulse is normal at 75, blood pressure has remained stable at 132/76. He has been tolerating a regular diet for close to a week now with no nausea or vomiting. He has a very normal bowel sound s. He denies any discomfort laterally, only associated with his wound. As mentioned, his diarrhea h as resolved and he tells me that he has 1-2 soft bowel movements per day. His laboratory studies rev ealed stable hemoglobin level of 12.5, but his white blood cell count has never normalized and today it is 17, up from 15 two days ago. He did have a CT scan of the abdomen and pelvis on 09/19/2017 which reveals a couple of small fluid c ollections in his abdomen without evidence of obvious abscess formation. This is certainly however, a concern. ASSESSMENT: At this time, the patient appears to be stable. He is 11 days out from his surgery and has been tolerating a regular diet for 6 days now. He has no diarrhea and strongly desires discharge to return to his home in [place]. I had a long conversation with the patient and his family. Under ideal circumstances, I would prefer to continue his care here. I stopped concerns about his wound w og still has a foul smell even though there is no obvious drainage from this. There is no obvious fascial dehiscence or hernia. There are certainly no bowel contents or intra-abdominal contents visi ble within the wound. I am also concerned about his leukocytosis and as this persisted, he would req uire another CT scan to evaluate for intraabdominal findings. At this time, he does not appear to douglas ve an anastomotic leak, although it is possible that he could develop an intra-abdominal infection an d he certainly does have a wound infection. He and his family are insistent that they want to return to his home and since there appears to be in no immediate life threatening problems, I think that is acceptable. I will be discharging home with a prescription for Flagyl. This should help to have finished treatin g his Clostridium difficile as well as provide some anaerobic and gram negative coverage for any intr a-abdominal process. We will need to continue b.i.d. dressing changes to his wound. I have given a prescription for Vista to use as necessary. I strongly recommended that he see a primary care physic bessy and a surgeon upon arrival to [place]. His mic will be safe to remove in 3 days when he was 2 weeks out from surgery. His wound will need to be packed until it heals in by secondary intention. I have given them my card and instructed the family to call me at my office if there are any proble ms or questions after discharge.
[2017-09-22 12:00] VITALS: BP 130/78; TEMP 99
[2017-09-22] MEDS: Acetaminophen 500 MG TAB PO PRN (13:43)
[2017-09-22] MEDS: traMADol HCl 50 MG TAB PO PRN (13:43)
== END 2017-09-22 14:15 | disposition home or self-care (01) | DRG 330 ==
LOC: ERS 19:19 → SURG A 09-11 00:14 → OBSVTOIN 09-11 08:57 → SURG A 09-12 17:20
PROVIDERS: ADMIT Specialist; ATTEND Specialist
PROC: 0DTF0ZZ Resection of Right Large Intestine, Open Approach (ICD-10-PCS; principal; 2017-09-11)
PROC: 0DBN0ZZ Excision of Sigmoid Colon, Open Approach (ICD-10-PCS; 2017-09-11)
DX: K56.609 Unspecified intestinal obstruction, unspecified as to partial versus complete obstruction (principal); A04.72 Enterocolitis due to Clostridium difficile, not specified as recurrent; K57.00 Diverticulitis of small intestine with perforation and abscess without bleeding; E87.6 Hypokalemia; Z53.31 Laparoscopic surgical procedure converted to open procedure
CPT/HCPCS: 36415; 36416; 74177; 80048; 80053; 82378; 83690; 83735; 84100; 85025; 87070; 87205; 87324; 87449; 88305; 88307; 93005; 96361; 96372; 96374; 96375; J0131; J1170; J1650; J1885; J2001; J2270; J2543; J2704; J2795; J3010; J7050; S0028